=== PATIENT | female | born 1965 | race Caucasian/White ===

== ENCOUNTER 2019-07-29 10:34 | Emergency (ER) | payer BC ==
[2019-07-29 10:46] VITALS: BP 162/83; PULSE 87; RESP 118; TEMP 98.4
--- NOTE | 2019-07-29 11:42 | XR ---
EXAMINATION TYPE: XR foot limited LT DATE OF EXAM: 07/29/2019 CLINICAL HISTORY: Stubbing injury with pain. TECHNIQUE: Frontal and lateral images of the left foot are obtained. COMPARISON: None FINDINGS: There is acute impacted oblique fracture proximal metaphysis fifth proximal phalanx. Osseou s structures are demineralized. There is moderate to large size superior calcaneal spur. Prominent ar ch is noted. Soft tissue felt within normal limits. IMPRESSION: There is acute oblique minimally displaced impacted fracture proximal metaphysis fifth p roximal phalanx. (Initial encounter closed type posttraumatic fracture).
--- NOTE | 2019-07-29 11:49 | ED ---
Lower Extremity Injury HPI - General Chief Complaint: Extremity Injury, Lower Stated Complaint: Foot/Toe Pain Time Seen by Provider: 07/29/19 10:51 Source: patient Mode of arrival: ambulatory Limitations: no limitations - History of Present Illness Initial Comments: Patient is a 54-year-old female presenting to the emergency Department with complaints of pain in her left fifth digit. Patient states approximately 2 months ago she excellently kicked a wall and had severe pain in her fifth digit. Patient states she was not seen at that time because she thought even if it was broke there was nothing to be done with it. Patient states she has been able to walk on it over the past few months this had a few slips since then and feels like her pain is starting to increase again. She does have some mild swelling to the toe. She denies any other complaints at this time. She denies fever or chills. Upon arrival to the ER, her vital signs are stable. - Related Data Allergies Allergy/AdvReac Type Severity Reaction Status Date / Time No Known Allergies Allergy Verified 07/29/19 10:46 Review of Systems ROS Statement: Those systems with pertinent positive or pertinent negative responses have been documented in the HPI. ROS Other: All systems not noted in ROS Statement are negative. Past Medical History History of Any Multi-Drug Resistant Organisms: None Reported Past Surgical History: Orthopedic Surgery Past Psychological History: No Psychological Hx Reported Smoking Status: Current every day smoker Past Alcohol Use History: Occasional Past Drug Use History: Marijuana General Exam - General Exam Comments Initial Comments: GENERAL: Well-appearing, well-nourished and in no acute distress. HEAD: Atraumatic, normocephalic. EYES: Pupils equal round and reactive to light, extraocular movements intact, sclera anicteric, conjunctiva are normal. ENT: Nares patent, oropharynx clear without exudates. Moist mucous membranes. NECK: Normal range of motion, supple without lymphadenopathy or JVD. LUNGS: Breath sounds clear to auscultation bilaterally and equal. No wheezes rales or rhonchi. HEART: Regular rate and rhythm without murmurs, rubs or gallops. ABDOMEN: Soft, nontender, normoactive bowel sounds. No guarding, no rebound. No masses appreciated. EXTREMITIES: Patient has mild pain with palpation of the left fifth digit. She does have increased pain with flexion and extension. No pain in the left metatarsals. There is mild swelling to the left fifth digit. Neurovascular intact. NEUROLOGICAL: Normal speech, normal gait. SKIN: Warm, Dry, normal turgor, no rashes or lesions noted. Limitations: no limitations Course Vital Signs 07/29/19 10:44 Temperature 98.4 F Pulse Rate 87 Respiratory 118 H Rate Blood Pressure 162/83 O2 Sat by Pulse 98 Oximetry Medical Decision Making - Medical Decision Making Patient is a 54-year-old female presenting with pain in her left fifth digit has been going on approximately 2 months. X-rays reveal an acute oblique minimal displaced impacted fracture of the fifth digit. Patient is able to walk on this injury. I discussed these findings with the patient. Patient will follow-up with orthopedics if symptoms do not improve. She is in agreement with this plan of care. She is stable for discharge. Disposition Clinical Impression: Closed fracture of phalanx of left fifth toe Disposition: HOME SELF-CARE Condition: Stable Instructions (If sedation given, give patient instructions): Toe Fracture (ED) Additional Instructions: Please return to the Emergency Department if symptoms worsen or any other concerns. May use ice to the area for pain or Motrin. Follow up with orthopedics as discussed. Is patient prescribed a controlled substance at d/c from ED?: No Referrals: None,Stated [Primary Care Provider] - 1-2 days Hardik Garrett MD [STAFF PHYSICIAN] - 1-2 days
== END 2019-07-29 12:09 | disposition home or self-care (01) ==
LOC: EC 10:34
DX: S92.512A Displaced fracture of proximal phalanx of left lesser toe(s), initial encounter for closed fracture (principal); F17.200 Nicotine dependence, unspecified, uncomplicated; W22.01XA Walked into wall, initial encounter
CPT/HCPCS: 99283

== ENCOUNTER 2019-12-11 05:51 | Emergency (ER) | payer BC ==
[2019-12-11 06:03] VITALS: BP 161/102; PULSE 96; RESP 19; TEMP 98.4
[2019-12-11] MEDS ORDERED: RABIES IMMUNE GLOB 300 UNIT/ML 1 ML VIAL IM ONE (06:11)
[2019-12-11] MEDS ORDERED: RABIES VACCINE (PCEC) 2.5 UNIT KIT IM ONE (06:11)
[2019-12-11] MEDS ORDERED: RABIES IMMUNE GLOB 300 UNIT/ML 5 ML VIAL IM ONE (06:15)
--- NOTE | 2019-12-11 06:27 | ED ---
Animal Bite HPI - General Chief Complaint: Animal Bite Stated Complaint: Animal Bite Time Seen by Provider: 12/11/19 06:03 Source: patient Mode of arrival: ambulatory - History of Present Illness Initial Comments: Patient is a 54-year-old female presenting to emergency Department with complaints of a raccoon bite on her finger 2 days ago. Patient states she reached her hand into a been of Food when a raccoon bit her right index finger. Patient states this happened 2 days ago by her family's urging her to seek attention for rabies vaccine. Patient states she did wash the wound with soap and water immediately after. She denies any fever or chills. She has no further complaints at this time. Upon arrival to the ER, her vital signs are stable. - Related Data Home Medications Medication Instructions Recorded Confirmed Ibuprofen [Motrin Ib] 400 mg PO Q8H PRN 12/11/19 12/11/19 Allergies Allergy/AdvReac Type Severity Reaction Status Date / Time No Known Allergies Allergy Verified 12/11/19 06:37 Review of Systems ROS Statement: Those systems with pertinent positive or pertinent negative responses have been documented in the HPI. ROS Other: All systems not noted in ROS Statement are negative. Past Medical History Past Medical History: No Reported History History of Any Multi-Drug Resistant Organisms: None Reported Past Surgical History: Orthopedic Surgery Past Psychological History: No Psychological Hx Reported Smoking Status: Current every day smoker Past Alcohol Use History: Occasional Past Drug Use History: Marijuana General Exam - General Exam Comments Initial Comments: GENERAL: Patient is well-developed and well-nourished. Patient is nontoxic and in no acute distress. HEAD: Atraumatic, normocephalic. EYES: Pupils equal round and reactive to light, extraocular movements intact, sclera anicteric, conjunctiva are normal. Eyelids were unremarkable. ENT: TMs normal, nares patent, oropharynx clear without exudates. Moist mucous membranes. NECK: Normal range of motion, supple without lymphadenopathy or JVD. LUNGS: Unlabored respirations. Breath sounds clear to auscultation bilaterally and equal. No wheezes rales or rhonchi. HEART: Regular rate and rhythm without murmurs, rubs or gallops. ABDOMEN: Soft, nontender, normoactive bowel sounds. No guarding, no rebound. No masses appreciated. : Deferred MUSCULOSKELETAL: Normal extremities with adequate strength and normal range of motion, no pitting or edema. No clubbing or cyanosis. NEUROLOGICAL: Patient is alert and oriented x 3. Normal speech, normal gait. Symmetrical smile. PSYCH: Normal mood, normal affect. SKIN: Warm, Dry, normal turgor, no rashes. Patient has a single very small puncture wound on her right index finger, proximal, near MCP joint. Course Vital Signs 12/11/19 05:59 Temperature 98.4 F Pulse Rate 96 Respiratory 19 Rate Blood Pressure 161/102 O2 Sat by Pulse 97 Oximetry Medical Decision Making - Medical Decision Making Patient is a 54-year-old female presenting with a raccoon bite to her right index finger 2 days. The animal was not captured. Patient will be started on the rabies vaccine and I will give her a prescription to continue the vaccine on days 3, 7, 14. Patient is in agreement with this plan of care. She is stable for discharge. Return parameters were discussed with the patient and she verbalized understanding. Case discussed with Dr. Arnett. Disposition Clinical Impression: Bitten by raccoon Disposition: HOME SELF-CARE Condition: Stable Instructions (If sedation given, give patient instructions): Animal Bite (ED) Additional Instructions: Please return to the Emergency Department if symptoms worsen or any other concerns. Continue with rabies vaccine on day 3, day 7, day 14 as prescribed. Is patient prescribed a controlled substance at d/c from ED?: No Referrals: None,Stated [Primary Care Provider] - 1-2 days
== END 2019-12-11 06:58 | disposition home or self-care (01) ==
LOC: EC 05:51
DX: S61.250A Open bite of right index finger without damage to nail, initial encounter (principal); F17.200 Nicotine dependence, unspecified, uncomplicated; Z23 Encounter for immunization; W55.51XA Bitten by raccoon, initial encounter; Y92.009 Unspecified place in unspecified non-institutional (private) residence as the place of occurrence of the external cause
CPT/HCPCS: 90375; 90471; 90675; 96372; 99283